=== PATIENT | female | born 1935 | race Caucasian/White ===

== ENCOUNTER 2018-10-05 15:44 | Observation (INO) | payer MEDICARE ==
[~2018-10-05] VITALS: Ht 165.1 cm; Wt 45.9 kg
[2018-10-05] MEDS: CEFTRIAXONE SOD 1 GM/NS 50 ML 50 ML IV SCH (00:38)
[~2018-10-05 15:44] MED LIST: ASPIRIN ENTERI325 MG PO; CEFTIN PO; COREG3.125 MG PO; DONEPEZIL HCL10 MG PO; LACTULOSE20 GM/30 M PO; NAMENDA10 MG PO; PEPCID20 MG PO
[2018-10-05] MEDS ORDERED: SODIUM CHLORIDE 0.9% 1000ML 1,000 ML IV STA (16:33)
[2018-10-05 17:05] LABS: CLARITY,URINE CLOUDY (CLEAR); COLOR,URINE YELLOW (YELLOW)
[2018-10-05 17:06] LABS: BILIRUBIN,URINE NEGATIVE (NEGATIVE); KETONES,URINE NEGATIVE (NEGATIVE); LEUKOCYTE ESTERASE ,URINE 2+ (NEGATIVE); NITRITE,URINE POSITIVE (NEGATIVE); PROTEIN,URINE DIPSTICK 1+ (NEGATIVE); URINE UROBILINOGEN 0.2 mg/dL (0.2 - 1)
[2018-10-05 17:26] LABS: WBC,URINE (MAN) >50 /HPF (0-5)
[2018-10-05 17:28] LABS: EPITHELIAL CELLS,URINE MANY /LPF; RBC,URINE 21-50 /HPF (0-5)
[2018-10-05 17:30] LABS: BACTERIA,URINE MODERATE /HPF
--- NOTE | 2018-10-05 17:46 | Diagnostic Imaging Report ---
CT BRAIN WO HISTORY: Altered mental status, weakness COMPARISON: None. Technique: Noncontrast axial scans were obtained from skull base to the vertex. Coronal and sagittal reconstructions obtained from the axial data. One or more of the following dose reduction techniques were used: Automated exposure control, adjustment of the mA and/or kV according to patient size, and/or utilization of iterative reconstruction technique. DISCUSSION: Scalp/Skull: Unremarkable. Brain sulci: Prominent. Ventricles: Compensatory dilatation. Extra-axial spaces: No masses or fluid collections. Carotid siphon calcifications are present. Parenchyma: Moderate bilateral deep white matter hypodensity is likely chronic microvascular ischemic change. There is an old left anterior thalamic lacunar infarct (with mild compensatory prominence of the frontal horn on the left lateral ventricle). Otherwise, no masses, hemorrhage, or large vascular territory acute infarct. Dural sinuses: No abnormal densities. Sellar/Suprasellar region: Intact. Skull base: Intact. Incidental findings: None. IMPRESSION: 1. No acute intracranial abnormalities. 2. Moderate supratentorial chronic microvascular ischemic change. Generalized cerebral volume loss. 3. 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 Signed by: Dr. Ephraim Arceo M.D. on 10/05/2018 5:43 PM
--- NOTE | 2018-10-05 18:21 | Diagnostic Imaging Report ---
EXAMINATION: CHEST SINGLE (PORTABLE) INDICATION: ^ERMD ORDER ^[id number] ^[id number] ^Y COMPARISON: None FINDINGS: AP view TUBES and LINES: None. LUNGS: Lungs are well inflated. Lungs are clear. There is no evidence of pneumonia or pulmonary edema. PLEURA: No pleural effusion or pneumothorax. HEART AND MEDIASTINUM: The cardiomediastinal silhouette is unremarkable. BONES AND SOFT TISSUES: No acute osseous lesion. Soft tissues are unremarkable. UPPER ABDOMEN: No free air under the diaphragm. IMPRESSION: No acute thoracic abnormality. Signed by: Dr. Gen Daley MD on 10/05/2018 6:18 PM
[2018-10-05] MEDS ORDERED: CEFTRIAXONE SOD 1 GM VIAL IV ONE (20:15)
[2018-10-05] MEDS ORDERED: CEFTRIAXONE SOD 1 GM VIAL IV SCH (21:45)
[2018-10-06] VITALS (10 sets, daily range): BP systolic 122–151; BP diastolic 61–77
--- NOTE | 2018-10-06 00:05 | NUR ---
ATTEMPTED TO START IV ON PT AND PT REFUSED. PT STATED "I DON'T WANT ANY OF THIS". PT IS ALTERED AND MD NOTIFIED.
--- NOTE | 2018-10-06 00:25 | NUR ---
PATIENT HAS REFUSED FOR SECOND TIME WITH SECOND NURSE. I TRIED TO EDUCATE HER WHY LABS AND A IV NEEDED BUT SHE BECAME VERY AGITATED AND NO FAMILY AT BEDSIDE. INFORMED ER DOC. RECEIVED ORDER FOR GEODON 10MG IM NOW
[2018-10-06] MEDS ORDERED: ZIPRASIDONE 20 MG VIAL IM PRN (00:30)
[2018-10-06] MEDS: SODIUM CHLORIDE 0.9% 1000ML 1,000 ML IV SCH ×3 (00:38→22:55)
--- NOTE | 2018-10-06 01:00 | NUR ---
ATTEMPTED TO START IV X2 BUT PATIENT WAS HITTING ME AND REUSING. SHE HAS SEVERE AMS. INFORMED MD NEW ORDERS TO BE PLACED
[2018-10-06 02:41] LABS: BASOPHILS # (AUTO) 0.1 (0.0-0.1); BASOPHILS % 0.5 % (0.0-1.0); EOSINOPHILS # (AUTO) 0.2 (0.0-0.4); HEMATOCRIT 35.4 % (34.2-44.1); HEMOGLOBIN 12.3 g/dL (12.0-16.0); LYMPHOCYTES # (AUTO) 3.1 (1.0-3.2); LYMPHOCYTES % 32.6 % (18.0-39.1); MEAN CORPUSCULAR HEMOGLOBIN 30.4 pg (28-32); MEAN CORPUSCULAR HGB CONC 34.7 g/dL (31-35); MEAN CORPUSCULAR VOLUME 87.6 fL (81-99); MONOCYTES # (AUTO) 1.6 (0.2-0.8); NEUTROPHILS # (AUTO) 4.5 (2.1-6.9); NEUTROPHILS % 47.6 % (38.7-80.0); PLATELET COUNT 212 x10e3/uL (140-360); RED BLOOD COUNT 4.04 x10e6/uL (3.6-5.1); RED CELL DISTRIBUTION WIDTH 13.2 % (11.7-14.4)
[2018-10-06 02:48] LABS: INR 1.03; PROTHROMBIN TIME 14.4 seconds (11.9-14.5)
[2018-10-06 02:49] LABS: PARTIAL THROMBOPLASTIN TIME 32.6 seconds (23.8-35.5)
[2018-10-06 02:56] LABS: ALANINE AMINOTRANSFERASE 15 IU/L (0-55); ALBUMIN 3.3 g/dL (3.5-5.0); ALKALINE PHOSPHATASE 78 IU/L (40-150); ANION GAP 12.8 mmol/L (8-16); BLOOD UREA NITROGEN 17 mg/dL (7-26); BUN/CREATININE RATIO 25 (6-25); CARBON DIOXIDE 25 mmol/L (22-29); CHLORIDE 105 mmol/L (98-107); CREATINE KINASE 68 IU/L (29-168); CREATININE, SERUM 0.67 mg/dL (0.57-1.11); EST GLOMERULAR FILTRATION RATE > 60 ML/MIN (60-); GLUCOSE 86 mg/dL (74-118); MAGNESIUM 2.1 MG/DL (1.3-2.1); POTASSIUM 3.8 mmol/L (3.5-5.1); SODIUM 139 mmol/L (136-145)
--- NOTE | 2018-10-06 04:54 | NUR ---
CALLED REPORT TO MARIBELL CADET ON MED-SURGE 1
--- NOTE | 2018-10-06 05:00 | NUR ---
pt received from er via bed. no ss of distress noted on admission. no co pain. right forearm iv wrapped. oriented to rm. hx obtained from medical record. will cont to follow poc. call weems within reach.
[2018-10-06] MEDS ORDERED: LACTULOSE SYRUP 20 GM/30 ML UDC PO PRN (07:00)
--- NOTE | 2018-10-06 07:44 | NUR ---
Received patient this morning, a/ox3, in bed sleeping and no resp distress, applied heel protectors and bed alarms in place, call light within reach, will monitor closely and maintain safety
--- NOTE | 2018-10-06 08:53 | History and Physical ---
PRIMARY CARE PHYSICIAN: Unknown. CHIEF COMPLAINT: Confusion. HISTORY OF PRESENT ILLNESS: This is an 83-year-old woman with a history of dementia, now developing worsening confusion, sent to the hospital and found to have urinary tract infection. She is admitted for further evaluation and management. Patient unable to provide any history due to dementia. PAST MEDICAL HISTORY: Hyponatremia, hypertension, dementia, constipation, fatigue, noncardiac chest pain, atrial fibrillation, urinary tract infection, diastolic congestive heart failure, diverticulitis, seizures, stroke, hypothyroidism, mitral valve prolapse. PAST SURGICAL HISTORY: Unknown. ALLERGIES: PER ELECTRONIC MEDICAL RECORD. FAMILY AND SOCIAL HISTORY: Patient previously lived at assisted living facility. MEDICATIONS: Per electronic medical record. REVIEW OF SYSTEMS: Unobtainable. PHYSICAL EXAMINATION VITAL SIGNS: Reviewed. GENERAL: A tired-appearing woman, resting in bed. HEENT: Anicteric. She has bitemporal wasting, which is azuohsfp-ru-rnpqcz. CARDIOVASCULAR: Normal S1, S2. No murmurs audible. LUNGS: She has moderate breath sounds. ABDOMEN: Soft, nondistended. She has mild tenderness in the suprapubic region. EXTREMITIES: No edema. SKIN: Dry. PSYCHIATRIC: Flat affect. NEUROLOGICAL: Awake, alert, and oriented to self only. Moving all extremities. LABS: Reviewed. MEDICATIONS: Reviewed. ASSESSMENT: This is an 83-year-old woman with: 1. Urinary tract infection. 2. Acute metabolic encephalopathy. 3. Dehydration. 4. Dementia. 5. Atrial fibrillation, which is paroxysmal or chronic. 6. Mitral valve prolapse. 7. Chronic diastolic congestive heart failure. 8. History of stroke. 9. Hypothyroidism. 10. Moderate aortic regurgitation. 11. Underweight state with agzjkwdr-hx-eeelsa protein-calorie malnutrition with bitemporal wasting, body mass index is 18.3. PLAN 1. IV antibiotics, ceftriaxone. 2. Followup cultures. 3. Restart home medications. 1. Physical therapy consultation. 2. Start Ensure for protein-calorie malnutrition and low BMI. 3. Monitor heart rate. 4. Followup further lab tests. 5. Use SCD and Pepcid for prophylaxis. 6. Disposition. Followup testing. Job#: [id number] DAMARIS
[2018-10-06] MEDS: MEMANTINE 10 MG TAB PO SCH (09:00)
[2018-10-06] MEDS: FAMOTIDINE 20 MG TAB PO SCH (09:00)
[2018-10-06] MEDS: CARVEDILOL 3.125 MG TAB PO SCH (09:00)
--- NOTE | 2018-10-06 11:47 | NUR ---
Patient alert and responsive, OOB and ambulated with PT along the hallway, slow steady gait and used rolling walker, back in bed and will monitor.
[2018-10-06] MEDS ORDERED: WATER STERILE 10 ML VIAL INJ PRN (12:00)
--- NOTE | 2018-10-06 19:00 | NUR ---
WALKING ROUNDS PERFORMED, RECEIVED PT LAYING SEMI FOWLERS IN BED, RESTING, 16 RR/MIN. NO S/SX OF DISTRESS NOTED. LEFT PT LAYING SEMI FOWLERS IN BED, BED IN LOW LOCKED POSITION, SIDE RAILS UPX2, CALL LIGHT AND PHONE WITHIN REACH. BED ALARM ACTIVATED ZONE 1.
[2018-10-06] MEDS ORDERED: NON-FORMULARY MEDICATION (Donepezil Hcl 10 MG) PO SCH (21:00)
[2018-10-06] MEDS: CEFTRIAXONE SOD 1 GM/NS 50 ML 50 ML IV SCH (22:30)
[2018-10-06] MEDS: DONEPEZIL HCL 5 MG TAB PO SCH (22:30)
[2018-10-07] VITALS (10 sets, daily range): BP systolic 104–181; BP diastolic 56–92
--- NOTE | 2018-10-07 06:20 | NUR ---
IM- Progress Note O/N: no events REVIEW OF SYSTEMS: Unobtainable. PHYSICAL EXAMINATION VITAL SIGNS: Reviewed. GENERAL: A tired-appearing woman, resting in bed. HEENT: Anicteric. She has bitemporal wasting, which is zjclgqrh-ld-qsubqi. CARDIOVASCULAR: Normal S1, S2. No murmurs audible. LUNGS: She has moderate breath sounds. ABDOMEN: Soft, nondistended. She has mild tenderness in the suprapubic region. EXTREMITIES: No edema. SKIN: Dry. PSYCHIATRIC: Flat affect. NEUROLOGICAL: Awake, alert, and oriented to self only. Moving all extremities. LABS: Reviewed. MEDICATIONS: Reviewed. ASSESSMENT: This is an 83-year-old woman with: 1. Urinary tract infection. 2. Acute metabolic encephalopathy. 3. Dehydration. 4. Dementia. 5. Atrial fibrillation, which is paroxysmal or chronic. 6. Mitral valve prolapse. 7. Chronic diastolic congestive heart failure. 8. History of stroke. 9. Hypothyroidism. 10. Moderate aortic regurgitation. 11. Underweight state with uieryrof-pe-bgwnyu protein-calorie malnutrition with bitemporal wasting, body mass index is 18.3. PLAN 1. IV antibiotics, ceftriaxone. 2. Followup cultures. 3. Restart home medications. 4. Physical therapy consultation. 5 Start Ensure for protein-calorie malnutrition and low BMI. 6. Monitor heart rate. 7. Followup further lab tests. 8. Use SCD and Pepcid for prophylaxis. 9. Disposition. Followup testing. 10/07/18 d/c to SNF when bed available; f/u labs; Garry Jain MD, PhD.
--- NOTE | 2018-10-07 07:38 | NUR ---
Received patient this morning, alert and in bed sleeping but responsive, call light within reach, bed alarms in place no apparent distress at this time, SNF eval orders in place an CM to follow for discharge, will monitor.
--- NOTE | 2018-10-07 08:47 | NUR ---
Patient alert and responsive, pleasantly confused, up and sitting be the edge of the bed eating breakfast, appetite good, will monitor
[2018-10-07] MEDS: FAMOTIDINE 20 MG TAB PO SCH (08:54)
[2018-10-07] MEDS: CARVEDILOL 3.125 MG TAB PO SCH (08:54)
[2018-10-07] MEDS: MEMANTINE 10 MG TAB PO SCH (08:54)
--- NOTE | 2018-10-07 13:30 | NUR ---
CALLED [facility] TO GET CHOICE FOR SNF, GAVE OPTION IN NETWORK HE WOULD LIKE TO STAY WITH SAME DOCTOR DR PAGAN SO HE SELECTED [facility] WILL FAX CLINICALS TO [phone].
--- NOTE | 2018-10-07 15:33 | NUR ---
Patient OOB and assisted to bathroom, had a large BM and care provided, now Alyven applied to sacral area, skin intact, bed alarms in place, call light within reach, appetite good, will monitor.
[2018-10-07] MEDS ORDERED: MAGNESIUM/ALUMINUM/SIMETHICONE 30 ML UDC PO ONE (17:45)
--- NOTE | 2018-10-07 18:02 | NUR ---
Nutrition Screen Note RD Recommendation for Physician: -Continue cardiac diet as ordered -Continue Ensure TID w/ meals as ordered -Encourage PO and hydration Plan of Care: RD following, monitoring for tolerance and adequacy Nutrition reason for involvement: Nutrition Risk Trigger MST Primary Diagnose(s): 1. Urinary tract infection. 2. Acute metabolic encephalopathy. 3. Dehydration. PMH: hypertension, dementia, constipation, fatigue, noncardiac chest pain, atrial fibrillation, urinary tract infection, diastolic congestive heart failure, diverticulitis, seizures, stroke, hypothyroidism, mitral valve prolapse. Ht: 65in Wt: 110lb BMI: 18.3kg/m2 IBW: 125lb RD Assessment: (10/07) Chart reviewed. Labs and meds reviewed. 83yo F, who is admitted for worsening dementia. Visited pt in the room. Pt appears to be very confused and doesnt know why she is here. Pt ate >50% of her lunch and drank 50% of Ensure ordered. No GI complains noted. No BM recorded. Looking back at her previous admission in April 2018, pt weighted about 95lb. I do not suspect any recent weight loss as she weighs about 110lb now. Pt also denies any weight loss. Will continue to monitor and follow. Current Diet: cardiac diet Malnutrition Evaluation (10/07) The patient does not meet criteria for a specified degree of malnutrition at this time. Will re-evaluate at follow-up as appropriate. Energy intake: Unable to determine energy intake SUPERINTENDENT OPERATING due to dementia Weight loss: None Fat loss: Moderate some protrusion of clavicle Muscle loss: Moderate some protrusion of clavicle and acromion process, temporal depression Diet Education Needs Assessment: Diet education not indicated. Nutrition Care Level: low Signed: Ana Coleman, MS, RD, LD
--- NOTE | 2018-10-07 18:33 | NUR ---
Patient OOB to chair in the room, frequent checks and orders in place for maalox, administered for GERD and heart burn with good result, appetite good, ate 100% of dinner, call light within reach, will monitor
--- NOTE | 2018-10-07 19:40 | NUR ---
REPORT TAKEN FROM MORNING RN. SITTING ON THE RECYLINER.AMBULATES WITH WALKER AND ASSISTANCE.VOIDED.NO RESP.DISTRESS.PHONE AND CALL LIGHT WITHIN REACH.INSTRUCTED TO CALL FOR ASSISTANCE NEEDED.
--- NOTE | 2018-10-07 22:00 | NUR ---
ASSISTED PT TO BACK TO THE BED.NO RESP.DISTRESS.NO PAIN VOICED.PHONE AND CALL LIGHT WITHIN REACH.INSTRUCTED TO CALL FOR ASSISTANCE NEEDED.
[2018-10-07] MEDS: DONEPEZIL HCL 5 MG TAB PO SCH (22:06)
[2018-10-07] MEDS: CEFTRIAXONE SOD 1 GM/NS 50 ML 50 ML IV SCH (22:06)
[2018-10-08 04:15] VITALS: BP 144/66
[2018-10-08] MEDS: SODIUM CHLORIDE 0.9% 1000ML 1,000 ML IV SCH (05:15)
--- NOTE | 2018-10-08 06:50 | NUR ---
REPORT GIVEN TO THE ONCOMING RN WALKING ROUNDS DONE .STABLE CONDITION.
--- NOTE | 2018-10-08 07:24 | NUR ---
IM- Progress Note O/N: no events REVIEW OF SYSTEMS: Unobtainable. PHYSICAL EXAMINATION VITAL SIGNS: Reviewed. GENERAL: A tired-appearing woman, resting in bed. HEENT: Anicteric. She has bitemporal wasting, which is vjhrtdoj-mw-xzlylq. CARDIOVASCULAR: Normal S1, S2. No murmurs audible. LUNGS: She has moderate breath sounds. ABDOMEN: Soft, nondistended. She has mild tenderness in the suprapubic region. EXTREMITIES: No edema. SKIN: Dry. PSYCHIATRIC: Flat affect. NEUROLOGICAL: Awake, alert, and oriented to self only. Moving all extremities. LABS: Reviewed. MEDICATIONS: Reviewed. ASSESSMENT: This is an 83-year-old woman with: 1. Urinary tract infection. 2. Acute metabolic encephalopathy. 3. Dehydration. 4. Dementia. 5. Atrial fibrillation, which is paroxysmal or chronic. 6. Mitral valve prolapse. 7. Chronic diastolic congestive heart failure. 8. History of stroke. 9. Hypothyroidism. 10. Moderate aortic regurgitation. 11. Underweight state with rzwggelt-jf-klbkyc protein-calorie malnutrition with bitemporal wasting, body mass index is 18.3. PLAN 1. IV antibiotics, ceftriaxone. 2. Followup cultures. 3. Restart home medications. 4. Physical therapy consultation. 5 Start Ensure for protein-calorie malnutrition and low BMI. 6. Monitor heart rate. 7. Followup further lab tests. 8. Use SCD and Pepcid for prophylaxis. 9. Disposition. Followup testing. 10/07/18 d/c to SNF when bed available; f/u labs; 10/08 awaiting discharge; Garry Jain MD, PhD.
[2018-10-08 08:21] VITALS: BP 118/58
[2018-10-08 09:05] VITALS: BP 118/58
[2018-10-08] MEDS: MEMANTINE 10 MG TAB PO SCH (09:08)
[2018-10-08] MEDS: FAMOTIDINE 20 MG TAB PO SCH (09:08)
[2018-10-08] MEDS ORDERED: CLONAZEPAM1 MG PO (09:11)
[2018-10-08] MEDS ORDERED: ATORVASTATIN CA20 MG PO (09:11)
[2018-10-08] MEDS ORDERED: DUONEB (09:13)
--- NOTE | 2018-10-08 09:32 | NUR ---
FILLED OUT RTF, NIKKIRR FILED IN CHART AND GAVE TO NURSE FOR DISCHARGE PROCESS ALSO PUT COPY IN PACKET TO ACCOMPANY PT TO FACILITY. SHE WILL GO TO [facility] WHEN DISCHARGED, [id number], [id number]
[2018-10-08 13:11] VITALS: BP 126/56
--- NOTE | 2018-10-08 14:50 | NUR ---
PT GOING TO ROOM [address] AT [facility] [address] [place] [address]. FAXED NIKKIRR AND CONSTANCE RTF TO NURSE FOR TRANSFER
[2018-10-08] MEDS: CARVEDILOL 3.125 MG TAB PO SCH (15:12)
--- NOTE | 2018-10-08 15:31 | NUR ---
NOTIFIED MONO FREITAS (SON OF PATIENT) OF PT TRANSFER TO [facility]. CALLED [facility] , SPOKE WITH CANDELARIO CADET. GEM TECHNICIAN CALLING AMBULANCE AT THIS TIME NOTIFIED MD PAGAN. STATES TO CONTINUE ANTIBIOTICS AND FLUIDS AT SNF. ORDERS RECEIVED
--- NOTE | 2018-10-08 16:25 | NUR ---
pt off unit via stretcher to [facility]
== END 2018-10-08 16:13 ==
LOC: ER 15:44 → ERHOLD 21:56 → MED/SURG 10-06 05:11
PROVIDERS: ADMIT Internal Medicine; ATTEND Internal Medicine
DX: N30.01 Acute cystitis with hematuria (principal); G93.41 Metabolic encephalopathy; F03.90 Unspecified dementia, unspecified severity, without behavioral disturbance, psychotic disturbance, mood disturbance, and anxiety; E86.0 Dehydration; I48.0 Paroxysmal atrial fibrillation; I50.32 Chronic diastolic (congestive) heart failure; Z86.73 Personal history of transient ischemic attack (TIA), and cerebral infarction without residual deficits; E03.9 Hypothyroidism, unspecified; I08.0 Rheumatic disorders of both mitral and aortic valves; E43 Unspecified severe protein-calorie malnutrition; Z68.1 Body mass index [BMI] 19.9 or less, adult; I11.0 Hypertensive heart disease with heart failure
CPT/HCPCS: 36415; 70450; 71045; 80053; 81001; 82550; 82553; 83605; 83735; 84134; 84484; 85025; 85610; 85730; 87040; 87086; 87186; 93005 ×2; 97116 ×2; 97162; 97530; 99285; G0378 ×4; J0696 ×2; J3486; J7030 ×2

== ENCOUNTER 2019-03-24 21:46 | Observation (INO) | payer MEDICARE ==
[~2019-03-24] VITALS: Ht 317.5 cm; Wt 45.8 kg
[~2019-03-24 21:46] MED LIST changes: +ATORVASTATIN CA20 MG PO; +CLONAZEPAM1 MG PO; +DUONEB
[2019-03-24 22:59] LABS: BASOPHILS # (AUTO) 0.1 (0.0-0.1); BASOPHILS % 0.5 % (0.0-1.0); EOSINOPHILS # (AUTO) 0.1 (0.0-0.4); EOSINOPHILS % 0.7 % (0.0-6.0); HEMATOCRIT 36.3 % (34.2-44.1); HEMOGLOBIN 12.9 g/dL (12.0-16.0); LYMPHOCYTES # (AUTO) 2.3 (1.0-3.2); LYMPHOCYTES % 19.8 % (18.0-39.1); MEAN CORPUSCULAR HEMOGLOBIN 30.3 pg (28-32); MEAN CORPUSCULAR HGB CONC 35.5 g/dL (31-35); MEAN CORPUSCULAR VOLUME 85.2 fL (81-99); MONOCYTES # (AUTO) 1.4 (0.2-0.8); NEUTROPHILS # (AUTO) 7.8 (2.1-6.9); NEUTROPHILS % 66.5 % (38.7-80.0); PLATELET COUNT 319 x10e3/uL (140-360); RED BLOOD COUNT 4.26 x10e6/uL (3.6-5.1); RED CELL DISTRIBUTION WIDTH 12.4 % (11.7-14.4)
--- NOTE | 2019-03-24 23:03 | NUR ---
REPORTED OFF TO CON RICHARDOSN RN FOR CONTINUITY OF CARE.
--- NOTE | 2019-03-24 23:05 | Diagnostic Imaging Report ---
CT BRAIN WO HISTORY: Unresponsive COMPARISON: Head CT 10/05/2018 Technique: Noncontrast axial scans were obtained from skull base to the vertex. Coronal and sagittal reconstructions obtained from the axial data. One or more of the following dose reduction techniques were used: Automated exposure control, adjustment of the mA and/or kV according to patient size, and/or utilization of iterative reconstruction technique. DISCUSSION: Scalp/Skull: Unremarkable. Brain sulci: Prominent Ventricles: Compensatory dilatation. Extra-axial spaces: No masses or fluid collections. Carotid siphon calcifications are present. Parenchyma: Moderate bilateral deep white matter hypodensity is likely chronic microvascular ischemic change. There is an old left anterior thalamic lacunar infarct. Otherwise, no masses, hemorrhage, or large vascular territory acute infarct. Dural sinuses: No abnormal densities. Sellar/Suprasellar region: Apparent transsphenoidal resection changes. Otherwise, unremarkable. Skull base: Intact. Incidental findings: Both ocular lenses are thinned. IMPRESSION: 1. No acute intracranial abnormalities. 2. Moderate supratentorial chronic microvascular ischemic change. Generalized cerebral volume loss. 3. 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 4. Apparent sellar transsphenoidal resection changes. Signed by: Dr. Ephraim Arceo M.D. on 03/24/2019 11:01 PM
--- NOTE | 2019-03-24 23:11 | NUR ---
IN AND OUT CATH PERFORMED USING STERILE TECHNIQUE, SPECIMEN COLLECTED AND SENT TO LAB, TOLERATED WELL.
--- NOTE | 2019-03-24 23:12 | NUR ---
URINE YELLOW, CLOUDY, FOUL SMELLING. MD AWARE
[2019-03-24 23:17] LABS: BILIRUBIN,URINE NEGATIVE (NEGATIVE); CLARITY,URINE CLOUDY (CLEAR); COLOR,URINE YELLOW (YELLOW); KETONES,URINE TRACE (NEGATIVE); LEUKOCYTE ESTERASE ,URINE MODERATE (NEGATIVE); NITRITE,URINE NEGATIVE (NEGATIVE); PROTEIN,URINE DIPSTICK 1+ (NEGATIVE); URINE UROBILINOGEN 0.2 mg/dL (0.2 - 1)
[2019-03-24 23:20] LABS: ALANINE AMINOTRANSFERASE 14 IU/L (0-55); ALBUMIN 3.7 g/dL (3.5-5.0); ALBUMIN/GLOBULIN RATIO 1.1 (0.8-2.0); ALKALINE PHOSPHATASE 89 IU/L (40-150); ANION GAP 16.4 mmol/L (8-16); BLOOD UREA NITROGEN 14 mg/dL (7-26); BUN/CREATININE RATIO 20 (6-25); CALCIUM 9.5 mg/dL (8.4-10.2); CARBON DIOXIDE 20 mmol/L (22-29); CHLORIDE 90 mmol/L (98-107); CREATINE KINASE 115 IU/L (29-168); EST GLOMERULAR FILTRATION RATE > 60 ML/MIN (60-); GLUCOSE 96 mg/dL (74-118); POTASSIUM 4.4 mmol/L (3.5-5.1); SODIUM 122 mmol/L (136-145)
--- NOTE | 2019-03-24 23:21 | Diagnostic Imaging Report ---
EXAMINATION: CHEST SINGLE (PORTABLE) INDICATION: ^confusion ^[id number] ^[id number] COMPARISON: 10/05/2018 FINDINGS: AP view TUBES and LINES: None. LUNGS: Lungs are well inflated. Minimal left basilar subsegmental atelectasis. There is no evidence of pneumonia or pulmonary edema. PLEURA: No pleural effusion or pneumothorax. HEART AND MEDIASTINUM: The cardiomediastinal silhouette is unremarkable. BONES AND SOFT TISSUES: No acute osseous lesion. Soft tissues are unremarkable. UPPER ABDOMEN: No free air under the diaphragm. IMPRESSION: No acute thoracic abnormality. Signed by: Dr. Gen Daley MD on 03/24/2019 11:18 PM
[2019-03-24 23:40] LABS: BACTERIA,URINE MANY /HPF; EPITHELIAL CELLS,URINE RARE /LPF; RBC,URINE 0-5 /HPF (0-5)
[2019-03-24 23:41] LABS: AMORPHOUS SEDIMENT,URINE MANY (FEW); CALCIUM OXALATE CRYSTALS,UR FEW (FEW)
[2019-03-24] MEDS ORDERED: SODIUM CHLORIDE 0.9% 1000ML 1,000 ML IV STA (23:50)
[2019-03-25] VITALS (10 sets, daily range): BP systolic 123–194; BP diastolic 58–88
[2019-03-25] MEDS ORDERED: CARVEDILOL3.125 MG PO (00:51)
[2019-03-25] MEDS ORDERED: FAMOTIDINE20 MG PO (00:51)
[2019-03-25] MEDS ORDERED: LOSARTAN POTASS25 MG PO (00:51)
[2019-03-25] MEDS ORDERED: LEVOTHYROXINE50 MCG PO (00:51)
[2019-03-25] MEDS ORDERED: ATORVASTATIN CA10 MG PO (00:51)
[2019-03-25] MEDS ORDERED: OLANZAPINE5 MG PO (00:51)
[2019-03-25] MEDS: SODIUM CHLORIDE 0.9% 1000ML 1,000 ML IV SCH ×4 (01:02→20:22)
[2019-03-25] MEDS: CEFTRIAXONE SOD 1 GM/NS 50 ML 50 ML IV SCH (03:36)
--- NOTE | 2019-03-25 05:53 | NUR ---
Notified by nail technician teacher patient had two runs of vtach overnight.
--- NOTE | 2019-03-25 06:03 | NUR ---
Attempted to notify Dr. Jain of [facility] via phone with no answer.
--- NOTE | 2019-03-25 06:14 | NUR ---
Spoke with Dr. Jain about patient's VTACH.. new orders received.
[2019-03-25] MEDS: CARVEDILOL 12.5 MG TAB PO SCH ×3 (06:34→17:04)
--- NOTE | 2019-03-25 06:46 | NUR ---
PRIMARY CARE PHYSICIAN: Unknown. CHIEF COMPLAINT: Confusion. HISTORY OF PRESENT ILLNESS: This is an 83-year-old woman, with confusion, found to have UTI and hyponatremia. PAST MEDICAL HISTORY: Hyponatremia, hypertension, dementia, constipation, fatigue, noncardiac chest pain, P.atrial fibrillation, urinary tract infection, diastolic congestive heart failure, diverticulitis, seizures, stroke, hypothyroidism, mitral valve prolapse, UTI, dehydration, moderate-severe protein-calorie malnutrition PAST SURGICAL HISTORY: Unknown. ALLERGIES: PER ELECTRONIC MEDICAL RECORD. FAMILY AND SOCIAL HISTORY: Patient previously lived at assisted living facility. MEDICATIONS: Per electronic medical record. REVIEW OF SYSTEMS: Unobtainable. PHYSICAL EXAMINATION VITAL SIGNS: Reviewed. GENERAL: A tired-appearing woman, resting in bed. HEENT: Anicteric. She has bitemporal wasting, which is zaonhjsn-us-tvtdsp. CARDIOVASCULAR: Normal S1, S2. No murmurs audible. LUNGS: She has moderate breath sounds. ABDOMEN: Soft, nondistended. EXTREMITIES: No edema. SKIN: Dry. PSYCHIATRIC: Flat affect. NEUROLOGICAL: Awake, alert, and oriented to self only. Moving all extremities. LABS: Reviewed. MEDICATIONS: Reviewed. ASSESSMENT: This is an 83-year-old woman with: 1. Urinary tract infection. 2. Acute metabolic encephalopathy. 3. Dementia. 5. PAF 6. Chronic diastolic congestive heart failure. 7. History of stroke. 8. Hypothyroidism. 9. Moderate aortic regurgitation. 11. Underweight state with yigmjttq-ji-cdbcxg protein-calorie malnutrition with bitemporal wasting, body mass index is 18.3. PLAN 1. IV antibiotics, ceftriaxone. 2. Followup cultures. 3. Restart home medications. 1. Physical therapy consultation. 2. Start Ensure for protein-calorie malnutrition and low BMI. 3. Monitor heart rate. 4. Followup further lab tests. 5. Use SCD and Pepcid for prophylaxis. 6. Disposition. Followup testing.
--- NOTE | 2019-03-25 06:48 | NUR ---
PRIMARY CARE PHYSICIAN: Unknown. CHIEF COMPLAINT: Confusion. HISTORY OF PRESENT ILLNESS: This is an 83-year-old woman with confusion, found to have UTI and hyponatremia. PAST MEDICAL HISTORY: Hyponatremia, hypertension, dementia, constipation, fatigue, noncardiac chest pain, P.atrial fibrillation, urinary tract infection, diastolic congestive heart failure, diverticulitis, seizures, stroke, hypothyroidism, mitral valve prolapse, UTI, dehydration, AMS, moderate-severe protein calorie malnutrition; PAST SURGICAL HISTORY: Unknown. ALLERGIES: PER ELECTRONIC MEDICAL RECORD. FAMILY AND SOCIAL HISTORY: Patient previously lived at assisted living facility. MEDICATIONS: Per electronic medical record. REVIEW OF SYSTEMS: Unobtainable. PHYSICAL EXAMINATION VITAL SIGNS: Reviewed. GENERAL: A tired-appearing woman, resting in bed. HEENT: Anicteric. She has bitemporal wasting, which is vnhfytej-ab-bnjfbz. CARDIOVASCULAR: Normal S1, S2. No murmurs audible. LUNGS: She has moderate breath sounds. ABDOMEN: Soft, nondistended. She has mild tenderness in the suprapubic region. EXTREMITIES: No edema. SKIN: Dry. PSYCHIATRIC: Flat affect. NEUROLOGICAL: Awake, alert, and oriented to self only. Moving all extremities. LABS: Reviewed. MEDICATIONS: Reviewed. ASSESSMENT: This is an 83-year-old woman with: 1. Urinary tract infection. 2. Acute metabolic encephalopathy. 3. Dehydration. 4. Hyponatremia 5.Dementia. 6.PAF 7.Moderate Aortic regurgitation 8.CHronic diastolic CHF 9.Hypothyroidism. 10.Hx stroke PLAN 1. IV antibiotics, ceftriaxone. 2. CHeck cultures 3.Resart AV blockade 4.PT consult 5.Resume home meds 6.CHeck EKG 7.SCD/lovenox;pepcid Dispo: Garry Jain MD, PhD.
--- NOTE | 2019-03-25 07:20 | NUR ---
AM assessment done. Dr. Jain at the bedside. Dr. Jain states patient has a history of Afib and strips were AFIB with RVR. Currently Tele#17, SB@55. Patient is awake to self only and states she feels "better today" Bed in lowest position, locked, bed alarm on and call weems within reach. Will continue to monitor.
[2019-03-25] MEDS: OLANZAPINE 5 MG TAB PO SCH (08:16)
[2019-03-25] MEDS: FAMOTIDINE 20 MG TAB PO SCH (08:16)
[2019-03-25] MEDS: LOSARTAN POTASSIUM 25 MG TAB PO SCH (08:16)
[2019-03-25] MEDS: LACTULOSE SYRUP 20 GM/30 ML UDC PO SCH ×2 (08:16→17:04)
[2019-03-25] MEDS ORDERED: LEVOTHYROXINE SODIUM 50 MCG TAB PO SCH (09:00)
[2019-03-25] MEDS ORDERED: CARVEDILOL 12.5 MG TAB PO SCH (09:00)
--- NOTE | 2019-03-25 09:01 | NUR ---
CALLED AND SPOKE WITH SON MONO [phone] WHOM STATES HE IS OKAY WITH HER GOING TO [facility] AND WANTS TO JUST DO WHAT THE DOCTOR RECOMMENDS. FAXED CLINICALS TO [facility].
[2019-03-25 09:19] LABS: CREATINE KINASE MB 6.5 ng/mL (0-5.0)
--- NOTE | 2019-03-25 12:30 | NUR ---
Patient turned, repositioned, assisted with lunch.
[2019-03-25 16:45] LABS: CREATINE KINASE MB 5.5 ng/mL (0-5.0)
[2019-03-25] MEDS ORDERED: ENOXAPARIN SOD INJ 40 MG/0.4 ML SYR SC SCH (17:00)
--- NOTE | 2019-03-25 18:45 | NUR ---
Report given to oncoming shift.
--- NOTE | 2019-03-25 19:29 | NUR ---
Patient cleaned, diaper changed, and purewick put in place..
[2019-03-25] MEDS ORDERED: ATORVASTATIN 10 MG TAB PO SCH (21:00)
[2019-03-25] MEDS ORDERED: DONEPEZIL HCL 5 MG TAB PO SCH (21:00)
[2019-03-25] MEDS ORDERED: MEMANTINE 10 MG TAB PO SCH (21:00)
[2019-03-25] MEDS ORDERED: NON-FORMULARY MEDICATION (Donepezil Hcl 10 MG) PO SCH (21:00)
[2019-03-26] MEDS: CEFTRIAXONE SOD 1 GM/NS 50 ML 50 ML IV SCH (03:10)
[2019-03-26] MEDS: SODIUM CHLORIDE 0.9% 1000ML 1,000 ML IV SCH (03:11)
[2019-03-26 05:32] LABS: BASOPHILS # (AUTO) 0.1 (0.0-0.1); BASOPHILS % 0.5 % (0.0-1.0); EOSINOPHILS # (AUTO) 0.1 (0.0-0.4); HEMOGLOBIN 11.9 g/dL (12.0-16.0); LYMPHOCYTES # (AUTO) 2.2 (1.0-3.2); LYMPHOCYTES % 20.8 % (18.0-39.1); MEAN CORPUSCULAR VOLUME 85.6 fL (81-99); MONOCYTES # (AUTO) 1.5 (0.2-0.8); MONOCYTES % 13.6 % (4.4-11.3); NEUTROPHILS # (AUTO) 6.9 (2.1-6.9); NEUTROPHILS % 63.7 % (38.7-80.0); PLATELET COUNT 304 x10e3/uL (140-360); RED BLOOD COUNT 3.97 x10e6/uL (3.6-5.1); RED CELL DISTRIBUTION WIDTH 12.5 % (11.7-14.4)
[2019-03-26 05:43] LABS: ALANINE AMINOTRANSFERASE 8 IU/L (0-55); ALBUMIN/GLOBULIN RATIO 1.1 (0.8-2.0); ALKALINE PHOSPHATASE 74 IU/L (40-150); ANION GAP 11.4 mmol/L (8-16); BLOOD UREA NITROGEN 6 mg/dL (7-26); BUN/CREATININE RATIO 11 (6-25); CALCIUM 8.5 mg/dL (8.4-10.2); CARBON DIOXIDE 24 mmol/L (22-29); CHLORIDE 99 mmol/L (98-107); CREATININE, SERUM 0.54 mg/dL (0.57-1.11); EST GLOMERULAR FILTRATION RATE > 60 ML/MIN (60-); GLUCOSE 89 mg/dL (74-118); POTASSIUM 3.4 mmol/L (3.5-5.1); SODIUM 131 mmol/L (136-145)
[2019-03-26] MEDS ORDERED: LEVOTHYROXINE SODIUM 50 MCG TAB PO SCH (06:00)
--- NOTE | 2019-03-26 06:49 | NUR ---
D/C summary: IM- Progress note Principal Dx: 1. Urinary tract infection. 2. Acute metabolic encephalopathy. 3. Dehydration. 4. Hyponatremia Secondary Dx: 5.Dementia. 6.PAF 7.Moderate Aortic regurgitation 8.CHronic diastolic CHF 9.Hypothyroidism. 10.Hx stroke PLAN 1. IV antibiotics, ceftriaxone. 2. CHeck cultures 3.Resart AV blockade 4.PT consult 5.Resume home meds 6.CHeck EKG 7.SCD/lovenox;pepcid Dispo: 03/26 leukocytosis resolved; Na much better; Ucx still negative; d/c today with abx. Needs BMP f/u outpt. d/c back to living facility stable f/u pcp 1 week d/c>35mins Garry Jain MD, PhD.
[2019-03-26] MEDS ORDERED: COREG12.5 MG PO (06:50)
[2019-03-26] MEDS ORDERED: KEFLEX500 MG PO (06:50)
[2019-03-26 07:17] LABS: CREATINE KINASE MB 1.9 ng/mL (0-5.0)
[2019-03-26 08:09] VITALS: BP 166/73
[2019-03-26] MEDS: OLANZAPINE 5 MG TAB PO SCH (08:20)
[2019-03-26] MEDS: LOSARTAN POTASSIUM 25 MG TAB PO SCH (08:20)
[2019-03-26] MEDS: LACTULOSE SYRUP 20 GM/30 ML UDC PO SCH (08:20)
[2019-03-26] MEDS: CARVEDILOL 12.5 MG TAB PO SCH (08:20)
[2019-03-26] MEDS: FAMOTIDINE 20 MG TAB PO SCH (08:20)
--- NOTE | 2019-03-26 08:50 | NUR ---
patient resting in bed, Alert with no distress , helped her to feed breakfast.
--- NOTE | 2019-03-26 10:48 | NUR ---
PT ACCEPTED TO ROOM [address] LATASHA OROZCO.
--- NOTE | 2019-03-26 12:50 | NUR ---
patient discharged to [facility], report called to T[facility], EMS here picked patient , not in any distress, iv canula removed with tip intact
== END 2019-03-26 12:39 ==
LOC: ER 21:46 → ERHOLD 03-25 00:36 → IMCU 03-25 00:57
PROVIDERS: ADMIT Internal Medicine; ATTEND Internal Medicine
DX: N39.0 Urinary tract infection, site not specified (principal); G93.41 Metabolic encephalopathy; G30.1 Alzheimer's disease with late onset; F02.81 Dementia in other diseases classified elsewhere, unspecified severity, with behavioral disturbance; E87.1 Hypo-osmolality and hyponatremia; I48.0 Paroxysmal atrial fibrillation; I11.0 Hypertensive heart disease with heart failure; I50.32 Chronic diastolic (congestive) heart failure; E43 Unspecified severe protein-calorie malnutrition; Z68.1 Body mass index [BMI] 19.9 or less, adult; I35.1 Nonrheumatic aortic (valve) insufficiency; E03.9 Hypothyroidism, unspecified; Z86.73 Personal history of transient ischemic attack (TIA), and cerebral infarction without residual deficits; Z79.01 Long term (current) use of anticoagulants; E86.0 Dehydration
CPT/HCPCS: 36415 ×3; 70450; 71045; 80053 ×2; 81001; 82550 ×3; 82553 ×3; 84484 ×3; 85025 ×2; 87086; 87186; 93005; 97116; 97139; 97162; 99284; G0378 ×2; J0696 ×2; J1650; J7030